=== PATIENT | female | born 1995 | race Caucasian/White ===

== ENCOUNTER → 2021-03-09 | Outpatient (CLI) | payer OTHER ==
--- NOTE | 2021-03-09 14:34 | REP ---
INDICATION: PREG LEVEL II ANAOMY COMPARISON: None. TECHNIQUE: Transabdominal obstetrical ultrasound with color Doppler evaluation. FINDINGS: Examination demonstrates a single live intrauterine in transverse presentation. motion is identified by technologist. Placenta is noted posterior and grade 0 without evidence for placenta previa or abruption. Amniotic fluid volume is normal. Cervix measures 3.2 cm in length and appears closed.. Selected gestational age: 19 weeks 6 days with JEANNE 07/28/2021. Gestational age by current measurements 20 weeks 0 days with JEANNE 07/27/2021. FHR equals 142 beats per minute. BPD: 4.7 cm at 20 weeks 2 days HC: 17.2 cm at 19 weeks 5 days AC: 14.7 cm at 20 weeks 0 days FL: 3.3 cm at 20 weeks 2 days HL: 3.0 cm at 20 weeks 0 days HC/AC: 1.17 Estimated weight 331 grams (56thpercentile). Anatomical assessment demonstrates normal structures including cranium, choroid plexus, cavum, cerebellum/posterior fossa, facial features, lungs, four-chamber heart/left ventricular outflow tract, diaphragm, stomach, cord insertion/three-vessel cord, kidneys/bladder, spine, and extremities. IMPRESSION: 1. Single live intrauterine in transverse lie demonstrating appropriate interval growth. 2. Images of the right cardiac ventricular outflow tracts are limited. Remainder of the anatomical assessment is complete and normal. <Electronically signed by Anthony Rain > 03/09/21 [id number]
== END ==
LOC: M RAD 12:57 → EDBD 13:00
PROVIDERS: ATTEND Midwife
DX: Z36.89 Encounter for other specified antenatal screening (principal); Z3A.20 20 weeks gestation of pregnancy

== ENCOUNTER → 2022-01-22 | Outpatient (CLI) | payer OTHER ==
[2022-01-22 19:46] LABS: ALBUMIN 4.3 GM/DL (3.2-5.2); ALT/SGPT 25 U/L (12-78); BILIRUBIN,TOTAL 0.3 MG/DL (0.2-1.0); BLOOD UREA NITROGEN 15 MG/DL (7-18); CALCIUM LEVEL 9.9 MG/DL (8.5-10.1); CARBON DIOXIDE LEVEL 26 MEQ/L (21-32); CHLORIDE LEVEL 107 MEQ/L (98-107); CREATININE FOR GFR 0.72 MG/DL (0.55-1.30); FREE T4 0.87 NG/DL (0.76-1.46); GLOMERULAR FILTRATION RATE > 60.0 (>60); GLUCOSE, FASTING 111 MG/DL (70-100); POTASSIUM SERUM 4.3 MEQ/L (3.5-5.1); SODIUM LEVEL 138 MEQ/L (136-145); TOTAL PROTEIN 7.8 GM/DL (6.4-8.2)
[2022-01-23 00:46] LABS: THYROID PEROXIDASE ANTIBODY 32.7 U/ML (<60.0)
== END ==
LOC: M LAB 14:36
PROVIDERS: ATTEND Midwife
DX: Z01.89 Encounter for other specified special examinations (principal)